=== PATIENT | male | born 2000 ===

== ENCOUNTER 2020-05-24 18:50 | Emergency (ER) | payer SELFPAY ==
[2020-05-24] MEDS ORDERED: LIDOCAINE W/EPINEPHRINE 1% 20ML VIAL ONE (19:28)
[2020-05-24] MEDS ORDERED: BOOSTRIX/ADACEL VACCINE (DIPHTH/PERTUSS/ACELL/TETANUS) 0.5ML SYR ONE (19:28)
--- NOTE | 2020-07-18 13:26 | REP ---
RIGHT FOOT SERIES: 4-VIEWS HISTORY: Unavailable. This report was delayed due to a malware attack on this facility. FINDINGS: 4-views of the right foot demonstrate normal bones, joints and soft tissues. No fracture, subluxation or arthropathy is seen. No erosive changes are seen. IMPRESSION: Negative radiographs of the right foot. [facility]
== END 2020-05-24 20:45 | disposition home or self-care (01) ==
LOC: M ED 18:50
DX: S91.331A Puncture wound without foreign body, right foot, initial encounter (principal); W26.8XXA Contact with other sharp object(s), not elsewhere classified, initial encounter; Y92.89 Other specified places as the place of occurrence of the external cause

== ENCOUNTER → 2020-11-11 | Outpatient (CLI) | payer SELFPAY | LOC: M LABSMTC 09:47 | PROVIDERS: ATTEND Pediatrics | DX: Z20.822 Contact with and (suspected) exposure to COVID-19 (principal) ==

== ENCOUNTER → 2021-02-10 | Outpatient (CLI) | payer SELFPAY | LOC: M LABSMTC 13:51 | PROVIDERS: ATTEND Pediatrics | DX: Z20.828 Contact with and (suspected) exposure to other viral communicable diseases (principal) ==